=== PATIENT | male | born 1965 | race Caucasian/White ===

== ENCOUNTER 2018-01-19 22:30 | Inpatient (IN) ==
[2018-01-19 23:01] LABS: Basophils # 0.1 K/mm3 (0-0.2); Basophils % 0.5 % (0.1-2.0); Eosinophils # 0.4 K/mm3 (0.0-0.4); Hematocrit 47.5 % (42.0-52.0); Hemoglobin 15.1 g/dL (14.1-18.0); Lymphocytes # 2.8 K/mm3 (0.7-4.5); Lymphocytes % 31.5 K/mm3 (10-50); Mean Corpuscular HGB Conc 31.7 g/dL (31.8-35.4); Mean Platelet Volume 7.7 fl (7.4-10.4); Monocytes # 0.6 K/mm3 (0.1-1.0); Monocytes % 6.2 % (1.7-9.3); Neutrophils # 5.2 K/mm3 (1.8-7.8); Neutrophils % 57.7 % (37.0-80.0); Platelet Count 191 K/mm3 (142-424); Red Blood Count 5.58 M/mm3 (4.60-6.20); Red Cell Distribution Width 12.8 % (11.5-17.5); White Blood Count 8.9 K/mm3 (4.8-10.8)
[2018-01-19 23:12] LABS: Albumin Level 4.1 gm/dL (3.4-5.0); Albumin/Globulin Ratio 1.3 (1.1-1.8); Anion Gap 7.7 mEq/L (5-15); Bilirubin,Total 1.1 mg/dL (0.2-1.0); Calcium 8.8 mg/dL (8.5-10.1); Globulin 3.1 gm/dl (1.3-3.2); Potassium 3.7 mmoL/L (3.5-5.1); Total Protein,Serum 7.2 gm/dL (6.4-8.2)
--- NOTE | 2018-01-20 00:16 | Emergency Department Note ---
ED Disposition Clinical Impression: LBBB (left bundle branch block) Cholelithiasis Qualifiers: Cholelithiasis location: gallbladder Cholecystitis presence: without cholecystitis Biliary obstruction: without biliary obstruction Qualified Code(s) : K80.20 - Calculus of gallbladder without cholecystitis without obstruction Disposition: Admitted As Inpatient Condition on Discharge: Good - Critical Care Critical Care Time: No Attestation: On 01/19/18, the high probability of a clinically significant, sudden or life threatening deterioration of the following system(s) required my full and direct attention, intervention and personal management. The time I documented below is in addition to time spent performing reported procedures but includes the following listed in this critical care notation. Medical Decision Making - Medical Records Medical records reviewed: Yes: I reviewed the patient's medical records. - [place] Inquiry Pt receiving controlled substance: No Vital Signs: 01/19/18 22:54 01/19/18 23:01 Temperature 97.6 F Temperature Source Oral Pulse Rate [Right Radial] 70 78 Respiratory Rate 14 18 Blood Pressure [Right Arm] 148/99 144/100 Blood Pressure Mean [Right Arm] 115 114 Blood Pressure Source [Right Arm] Automatic Cuff Automatic Cuff Blood Pressure Position [Right Arm] Sitting Sitting 02 Sat by Pulse Oximetry 100 98 Oxygen Delivery Method Room Air Room Air - Lab Data Lab results reviewed: Yes: I reviewed the patient's lab results. Lab Results 01/19/18 22:50: WBC 8.9, RBC 5.58, Hgb 15.1, Hct 47.5, MCV 85.0, MCH 27.0, MCHC 31.7 L, RDW 12.8, Plt Count 191, MPV 7.7, Neut % (Auto) 57.7, Lymph % (Auto) 31.5, [place] % (Auto) 6.2, Eos % (Auto) 4.0, Baso % (Auto) 0.5, Neut # (Auto) 5.2 , Lymph # (Auto) 2.8, [place] # (Auto) 0.6, Eos # (Auto) 0.4, Baso # (Auto) 0.1 01/19/18 22:50: Sodium 140, Potassium 3.7, Chloride 105, Carbon Dioxide 31, Anion Gap 7.7, BUN 23 H, Creatinine 1.09, Estimated Creat Clear 129, Estimated GFR 70, Est GFR ( Amer) 85, Glucose 119 H, Calcium 8.8, Total Bilirubin 1.1 H, AST 221 H, ALT 184 H, Alkaline Phosphatase 148 H, Total Protein 7.2, Albumin 4.1, Globulin 3.1, Albumin/Globulin Ratio 1.3 01/19/18 22:50: Lipase 119 Result diagrams: 01/19/18 22:50 01/19/18 22:50 Orders (Tests/Meds): ED MEDICATIONS Generic Name Dose Route Start Last Admin Trade Name Freq PRN Reason Stop Dose Admin Ampicillin Sodium/Sulbactam 100 mls @ 200 mls/hr 01/20/18 00:45 01/20/18 01: 22 Sodium 3 gm/ Sodium Chloride IV 02/03/18 00:44 200 mls/hr Q8H CRESCENCIO Administration Protocol Discontinued Medications Generic Name Dose Route Start Last Admin Trade Name Freq PRN Reason Stop Dose Admin Morphine Sulfate 4 mg 01/20/18 00:00 01/20/18 00:20 Morphine 4mg/Ml Syringe IV 01/20/18 00:01 4 mg ONCE ONE Administration Ondansetron HCl 4 mg 01/19/18 23:59 01/20/18 00:20 Zofran 4mg/2ml Vial IV 01/20/18 00:00 4 mg ONCE ONE Administration ORDERS Category Date Time Status CT abdomen pelvis wo con Stat Cat Scan 01/19/18 23:04 Taken XR chest 2V Stat Exams 01/19/18 22:41 Taken 12-lead EKG Request [ECG Request by /Scooter] Stat Y 01/19/18 22:39 Ordered - Radiology Data #1 Image(s): Chest Image Reviewed: Yes I reviewed the patient's radiology image Preliminary Findings: Normal/NAD - CT Data CT Scan: Abdomen, Pelvis Time Received: 01:[address] Reviewed: Yes: I have viewed the radiologist's interpretation Preliminary Findings: Abnormal (cholelithiasis) - Physician Consults Physician Consulted: magnolia Reason -: Admission Additional Consult: laurel Reason -: Pt condition Nausea/Vomiting/Diarrhea HPI - General Chief complaint: Abdominal Pain Stated complaint: Upper abd pain Time Seen by Provider: 01/20/18 00:13 Mode of Arrival: Ambulatory Source of Information: Patient, Spouse, Medical Record Limitations: No Limitations Description of Symptoms (Recalled from ER Triage Doc. by RN): pt has epigastric pain for last couple days after eating, tonight had beens and was not relieved by apple cider vinager - History of Present Illness HPI Narrative: has had upper abd pain this week and tonight inc pain with nausea - pt w/o fever or diarrhea MD complaint: nausea, vomiting, abdominal pain Onset (ago): day(s) Associated Abdominal Pain: Yes Location of pain: RUQ Severity: moderate Consistency: colicky Exacerbating factors: eating Associated symptoms: nausea/vomiting - Related Data Home Medications Medication Instructions Recorded Confirmed Cetirizine HCl 10 mg PO DAILY 01/19/18 01/19/18 Glucosamine/MSM/Chondroitin A 1 each PO DAILY 01/19/18 01/19/18 [Glucosamine Chondroit MSM Tab] Lisinopril/Hydrochlorothiazide 1 tab PO DAILY 01/19/18 01/19/18 [Lisinopril-Hctz 10-12.5 mg Tab] Rosuvastatin Calcium [Crestor] 10 mg PO BID 01/19/18 01/19/18 Allergies Allergy/AdvReac Type Severity Reaction Status Date / Time No Known Allergies Allergy Unverified 07/08/17 15:29 [facility] History I have reviewed the patient's past medical history: Yes Medical History: Denies:: Cancer, Diabetes Mellitus Type 1, Diabetes Mellitus Type 2, MRSA Amputation: No Fractures: No - Social History Smoking Status: Former smoker Alcohol Intake: current Alcohol Intake Frequency:: a few times a month - Psychiatric History Expresses thoughts of harming self/others: None Suicide Plan Description: No Plan ROS Obtained: Yes All systems reviewed & no additional complaints - Constitutional Constitutional: Denies fever(s) - Eyes Eyes: Denies change in vision - ENT Ears, Nose, Mouth, and Throat: Denies sore throat - Cardiovascular Cardiovascular: Denies chest pain - Respiratory Respiratory: No cough - Gastrointestinal Gastrointestingal: Reports: abdominal pain, nausea, vomiting. Denies: diarrhea - Genitourinary Male Genitourinary: Denies hematuria - Musculoskeletal Musculoskeletal: Denies joint pain, Denies joint swelling - Integumentary/Breasts Skin/Breast: Denies rash - Neurologic Neurologic: Denies headache(s), Denies seizure-like activity Physical Exam - General General appearance: alert - Head Head exam: normocephalic - Eye Eye exam: Present: PERRL, EOMI. Absent: scleral icterus - ENT ENT exam: Present: mucous membranes moist - Neck Neck exam: Present: trachea midline - Respiratory Respiratory exam: Absent: respiratory distress - Cardiovascular Cardiovascular exam: Present: regular rate, systolic murmur - Abdominal Exam Abdominal exam: Present: soft, tenderness Abdominal tenderness: Present: RUQ, epigastrium, moderate - Extremities Exam Extremities exam: Present: full ROM - Back Exam Back exam: Absent: CVA tenderness (R) - Neurological Exam Neurological exam: Present: alert, oriented X3, CN II-XII intact - Psychiatric Psychiatric exam: Present: normal affect - Skin Skin exam: Absent: rash
[2018-01-20 07:03] LABS: Basophils % 0.5 % (0.1-2.0); Eosinophils # 0.3 K/mm3 (0.0-0.4); Eosinophils % 4.4 % (0.1-12.0); Hematocrit 45.6 % (42.0-52.0); Hemoglobin 14.2 g/dL (14.1-18.0); Lymphocytes % 27.8 K/mm3 (10-50); Mean Corpuscular HGB Conc 31.2 g/dL (31.8-35.4); Mean Corpuscular Hemoglobin 26.5 pg (27.0-31.2); Mean Corpuscular Volume 85.1 fl (80-94); Mean Platelet Volume 8.1 fl (7.4-10.4); Monocytes # 0.5 K/mm3 (0.1-1.0); Monocytes % 6.3 % (1.7-9.3); Neutrophils # 4.5 K/mm3 (1.8-7.8); Platelet Count 180 K/mm3 (142-424); Red Blood Count 5.35 M/mm3 (4.60-6.20); Red Cell Distribution Width 12.8 % (11.5-17.5); White Blood Count 7.3 K/mm3 (4.8-10.8)
[2018-01-20 07:19] LABS: Albumin Level 3.6 gm/dL (3.4-5.0); Albumin/Globulin Ratio 1.2 (1.1-1.8); Anion Gap 11.7 mEq/L (5-15); Bilirubin,Total 1.8 mg/dL (0.2-1.0); Calcium 8.2 mg/dL (8.5-10.1); Globulin 2.9 gm/dl (1.3-3.2); Potassium 3.7 mmoL/L (3.5-5.1); Total Protein,Serum 6.5 gm/dL (6.4-8.2)
--- NOTE | 2018-01-20 07:38 | History & Physical Report ---
*Admission Date: 01/20/18 *Chief complaint: Abdominal pain *History of present illness: 52-year-old male with history of atrial fibrillation and hypercholesterolemia presented to the emergency department after onset of abdominal pain after eating beans for supper. Patient had been experiencing episodes of epigastric and right upper quadrant abdominal pain to varying degrees over the last several weeks. He actually asked me about the symptoms at [facility] and was advised to follow-up. His pain became quite severe yesterday evening. In the emergency department workup was begun which revealed elevated transaminases and very mild elevation in total bilirubin. CT scan showed cholelithiasis and was also suspicious for a stone at the ampulla of Vater. Surgery was contacted and this admission was recommended. Patient was admitted on IV fluids and IV antibiotics with repeat labs scheduled for this morning. [facility] History I have reviewed the patient's past medical history: Yes Medical History: Reports:: Hyperlipidemia, Hypertension Denies:: Cancer, Diabetes Mellitus Type 1, Diabetes Mellitus Type 2, MRSA Amputation: No Fractures: No - *Social History Educational Level: Attended College Smoking Status: Former smoker Tobacco Type: smokeless tobacco Alcohol Intake: current Alcohol Intake Frequency:: a few times a month Occupational Status: employed Housing: house Household Members: spouse - Psychiatric History Expresses thoughts of harming self/others: None Suicide Plan Description: No Plan *Family Hx:: Cancer, Diabetes, Hyperlipidemia Review of Systems - Review of Systems Review of systems:: pertinent systems reviewed and negative unless documented below - Constitutional Denies chills, Denies fever(s) - *Cardiovascular Denies chest pain, Denies chest pain at rest, Denies shortness of breath - *Respiratory Denies cough, Denies shortness of breath - *Gastrointestinal Reports abdominal pain, Reports bloating, Reports heartburn, Reports feeling full early, Denies change in bowel habits - *Neurologic Denies headache(s), Denies seizure-like activity Meds Home Medications Medication Instructions Recorded Confirmed Type Cetirizine HCl 10 mg PO DAILY 01/19/18 01/19/18 History Glucosamine/MSM/Chondroitin A 1 each PO DAILY 01/19/18 01/19/18 History [Glucosamine Chondroit MSM Tab] Lisinopril/Hydrochlorothiazide 1 tab PO DAILY 01/19/18 01/19/18 History [Lisinopril-Hctz 10-12.5 mg Tab] Rosuvastatin Calcium [Crestor] 10 mg PO BID 01/19/18 01/19/18 History Allergies Allergy/AdvReac Type Severity Reaction Status Date / Time No Known Allergies Allergy Unverified 07/08/17 15:29 Exam Vital signs and Labs for Last 24 Hours: Temp Pulse Resp BP Pulse Ox 97.9 F 73 16 138/75 97 01/20/18 02:10 01/20/18 02:10 01/20/18 02:10 01/20/18 02:10 01/20/18 02:10 Laboratory Results - last 24 hr 01/19/18 22:50: WBC 8.9, RBC 5.58, Hgb 15.1, Hct 47.5, MCV 85.0, MCH 27.0, MCHC 31.7 L, RDW 12.8, Plt Count 191, MPV 7.7, Neut % (Auto) 57.7, Lymph % (Auto) 31.5, [place] % (Auto) 6.2, Eos % (Auto) 4.0, Baso % (Auto) 0.5, Neut # (Auto) 5.2 , Lymph # (Auto) 2.8, [place] # (Auto) 0.6, Eos # (Auto) 0.4, Baso # (Auto) 0.1 01/19/18 22:50: Sodium 140, Potassium 3.7, Chloride 105, Carbon Dioxide 31, Anion Gap 7.7, BUN 23 H, Creatinine 1.09, Estimated Creat Clear 129, Estimated GFR 70, Est GFR ( Amer) 85, Glucose 119 H, Calcium 8.8, Total Bilirubin 1.1 H, AST 221 H, ALT 184 H, Alkaline Phosphatase 148 H, Total Protein 7.2, Albumin 4.1, Globulin 3.1, Albumin/Globulin Ratio 1.3 01/19/18 22:50: Lipase 119 01/20/18 06:46: WBC 7.3, RBC 5.35, Hgb 14.2, Hct 45.6, MCV 85.1, MCH 26.5 L, MCHC 31.2 L, RDW 12.8, Plt Count 180, MPV 8.1, Neut % (Auto) 61.0, Lymph % (Auto ) 27.8, [place] % (Auto) 6.3, Eos % (Auto) 4.4, Baso % (Auto) 0.5, Neut # (Auto) 4.5, Lymph # (Auto) 2.0, [place] # (Auto) 0.5, Eos # (Auto) 0.3, Baso # (Auto) 0.0 01/20/18 06:46: Sodium 140, Potassium 3.7, Chloride 105, Carbon Dioxide 27, Anion Gap 11.7, BUN 21 H, Creatinine 0.94, Estimated Creat Clear 153, Estimated GFR 84, Est GFR ( Amer) 101, Glucose 106, Calcium 8.2 L, Total Bilirubin 1.8 H, AST 321 H* D, ALT 294 H D, Alkaline Phosphatase 162 H, Total Protein 6.5 , Albumin 3.6 D, Globulin 2.9, Albumin/Globulin Ratio 1.2, Lipase 102 I & O for Last 24 hours: Intake & Output 01/17/18 01/18/18 01/19/18 01/20/18 11:59 11:59 11:59 11:59 Weight 265 lb Narrative: He is sitting up in the chair and appears comfortable. He is alert and oriented 3. Lungs are clear to auscultation. Heart has a regular rate and rhythm. Abdomen is soft and nontender. Bowel sounds are present. Extremities are without edema. Neurologic exam is negative for deficit. H&P: Result - Labs Labs: Short CBC 01/19/18 01/20/18 Range/Units 22:50 06:46 WBC 8.9 7.3 (4.8-10.8) K/mm3 Hgb 15.1 14.2 (14.1-18.0) g/dL Hct 47.5 45.6 (42.0-52.0) % Plt Count 191 180 (142-424) K/mm3 [facility] 01/19/18 01/20/18 22:50 06:46 Sodium 140 140 Potassium 3.7 3.7 Chloride 105 105 Carbon Dioxide 31 27 BUN 23 H 21 H Creatinine 1.09 0.94 Glucose 119 H 106 Calcium 8.8 8.2 L Liver Function 01/19/18 01/20/18 Range/Units 22:50 06:46 Total Bilirubin 1.1 H 1.8 H (0.2-1.0) mg/dL AST 221 H 321 H* D (15-37) U/L ALT 184 H 294 H D (12-78) U/L Alkaline Phosphatase 148 H 162 H (46-116) U/L Albumin 4.1 3.6 D (3.4-5.0) gm/dL Assessment and Plan (1) Choledocholithiasis with obstruction Current visit: Yes Status: Acute Category: Medical Code(s): K80.51 - Calculus of bile duct without cholangitis or cholecystitis with obstruction (2) Cholelithiasis Current visit: Yes Status: Acute Qualifiers: Cholelithiasis location: gallbladder Cholecystitis presence: without cholecystitis Biliary obstruction: without biliary obstruction Qualified Code(s): K80.20 - Calculus of gallbladder without cholecystitis without obstruction Category: Medical Code(s): K80.20 - Calculus of gallbladder without cholecystitis without obstruction - Assessment and plan all Dx Assessment and Plan for all problems:: 1. Right upper quadrant ultrasound today to assess for any common bile duct dilatation as well as possible stone with in the bile duct. Elevated transaminases and mild elevation of bilirubin would suggest that there has been at least some temporary obstruction. Dr. Kuo has been consulted. Further decision making will be made after ultrasound was performed
--- NOTE | 2018-01-20 07:52 | Pharmacy Consult Notes ---
[facility] Pharm[facility] VTE Monitoring - Patient Demographics Admission date: 01/20/18 Report Date: 01/20/18 Time: 07:51 Allergies/Adverse Reactions: Patient Allergies No Known Allergies Allergy (Unverified 07/08/17 15:29) Height: 1.91 m Weight: 120.202 kg Patient Problems: Current Active Problems Cholelithiasis (Acute) LBBB (left bundle branch block) (Acute) Choledocholithiasis with obstruction (Acute) - VTE Risk Labs: VTE Related Lab Results Hgb 14.2 g/dL (14.1-18.0) 01/20/18 06:46 Hct 45.6 % (42.0-52.0) 01/20/18 06:46 Plt Count 180 K/mm3 (142-424) 01/20/18 06:46 BUN 21 mg/dL (7-18) H 01/20/18 06:46 Creatinine 0.94 mg/dL (0.70-1.30) 01/20/18 06:46 Estimated Creat Clear 153 mL/min (0-300) 01/20/18 06:46 Was VTE Risk Assessment Performed: Yes VTE Score: 1 VTE Risk Level: Very Low Risk Clinical Trial Participant: No - Prophylaxis VTE Prophylaxis Ordered?: Yes Types of VTE Prophylaxis: TEDS Knee High
--- NOTE | 2018-01-20 09:37 | Consult Report ---
*Admission Date: 01/20/18 *Chief complaint: Abdominal pain *History of present illness: 52-year-old male with history of atrial fibrillation and hypercholesterolemia presented to the emergency department after onset of abdominal pain after eating beans for supper. Patient had been experiencing episodes of epigastric and right upper quadrant abdominal pain to varying degrees over the last several weeks. He actually asked me about the symptoms at [facility] and was advised to follow-up. His pain became quite severe yesterday evening. In the emergency department workup was begun which revealed elevated transaminases and very mild elevation in total bilirubin. CT scan showed cholelithiasis and was also suspicious for a stone at the ampulla of Vater. Surgery was contacted and this admission was recommended. Patient was admitted on IV fluids and IV antibiotics with repeat labs scheduled for this morning. Review of Systems - *Neurologic Denies headache(s), Denies seizure-like activity [facility] History Medical History: Reports:: Hyperlipidemia, Hypertension Denies:: Cancer, Diabetes Mellitus Type 1, Diabetes Mellitus Type 2, MRSA Amputation: No Fractures: No - *Social History Educational Level: Attended College Smoking Status: Former smoker Tobacco Type: smokeless tobacco Alcohol Intake: current Alcohol Intake Frequency:: a few times a month Occupational Status: employed Housing: house Household Members: spouse - Psychiatric History Expresses thoughts of harming self/others: None Suicide Plan Description: No Plan *Family Hx:: Cancer, Diabetes, Hyperlipidemia Meds Home Medications Medication Instructions Recorded Confirmed Type Cetirizine HCl 10 mg PO DAILY 01/19/18 01/19/18 History Glucosamine/MSM/Chondroitin A 1 each PO DAILY 01/19/18 01/19/18 History [Glucosamine Chondroit MSM Tab] Lisinopril/Hydrochlorothiazide 1 tab PO DAILY 01/19/18 01/19/18 History [Lisinopril-Hctz 10-12.5 mg Tab] Rosuvastatin Calcium [Crestor] 10 mg PO HS 01/19/18 01/20/18 History Allergies Allergy/AdvReac Type Severity Reaction Status Date / Time No Known Allergies Allergy Unverified 07/08/17 15:29 Exam Vital signs and Labs for Last 24 Hours: Temp Pulse Resp BP Pulse Ox 97.5 F L 72 18 136/97 99 01/20/18 07:42 01/20/18 07:42 01/20/18 07:42 01/20/18 07:42 01/20/18 07:42 Laboratory Results - last 24 hr 01/19/18 22:50: WBC 8.9, RBC 5.58, Hgb 15.1, Hct 47.5, MCV 85.0, MCH 27.0, MCHC 31.7 L, RDW 12.8, Plt Count 191, MPV 7.7, Neut % (Auto) 57.7, Lymph % (Auto) 31.5, [place] % (Auto) 6.2, Eos % (Auto) 4.0, Baso % (Auto) 0.5, Neut # (Auto) 5.2 , Lymph # (Auto) 2.8, [place] # (Auto) 0.6, Eos # (Auto) 0.4, Baso # (Auto) 0.1 01/19/18 22:50: Sodium 140, Potassium 3.7, Chloride 105, Carbon Dioxide 31, Anion Gap 7.7, BUN 23 H, Creatinine 1.09, Estimated Creat Clear 129, Estimated GFR 70, Est GFR ( Amer) 85, Glucose 119 H, Calcium 8.8, Total Bilirubin 1.1 H, AST 221 H, ALT 184 H, Alkaline Phosphatase 148 H, Total Protein 7.2, Albumin 4.1, Globulin 3.1, Albumin/Globulin Ratio 1.3 01/19/18 22:50: Lipase 119 01/20/18 06:46: WBC 7.3, RBC 5.35, Hgb 14.2, Hct 45.6, MCV 85.1, MCH 26.5 L, MCHC 31.2 L, RDW 12.8, Plt Count 180, MPV 8.1, Neut % (Auto) 61.0, Lymph % (Auto ) 27.8, [place] % (Auto) 6.3, Eos % (Auto) 4.4, Baso % (Auto) 0.5, Neut # (Auto) 4.5, Lymph # (Auto) 2.0, [place] # (Auto) 0.5, Eos # (Auto) 0.3, Baso # (Auto) 0.0 01/20/18 06:46: Sodium 140, Potassium 3.7, Chloride 105, Carbon Dioxide 27, Anion Gap 11.7, BUN 21 H, Creatinine 0.94, Estimated Creat Clear 153, Estimated GFR 84, Est GFR ( Amer) 101, Glucose 106, Calcium 8.2 L, Total Bilirubin 1.8 H, AST 321 H* D, ALT 294 H D, Alkaline Phosphatase 162 H, Total Protein 6.5 , Albumin 3.6 D, Globulin 2.9, Albumin/Globulin Ratio 1.2, Lipase 102 I & O for Last 24 hours: Intake & Output 01/17/18 01/18/18 01/19/18 01/20/18 11:59 11:59 11:59 11:59 Intake Total 0 / 0 Balance 0 / 0 Weight 265 lb - Constitutional no acute distress - *Routine Respiratory Exam Present: CTA bilaterally - *Routine Cardiovascular Exam Present: RRR - *Routine Abdominal Exam Present: soft. Absent: tenderness Results - Labs 01/20/18 06:46 01/20/18 06:46 Laboratory Results - last 24 hr 01/19/18 22:50: WBC 8.9, RBC 5.58, Hgb 15.1, Hct 47.5, MCV 85.0, MCH 27.0, MCHC 31.7 L, RDW 12.8, Plt Count 191, MPV 7.7, Neut % (Auto) 57.7, Lymph % (Auto) 31.5, [place] % (Auto) 6.2, Eos % (Auto) 4.0, Baso % (Auto) 0.5, Neut # (Auto) 5.2 , Lymph # (Auto) 2.8, [place] # (Auto) 0.6, Eos # (Auto) 0.4, Baso # (Auto) 0.1 01/19/18 22:50: Sodium 140, Potassium 3.7, Chloride 105, Carbon Dioxide 31, Anion Gap 7.7, BUN 23 H, Creatinine 1.09, Estimated Creat Clear 129, Estimated GFR 70, Est GFR ( Amer) 85, Glucose 119 H, Calcium 8.8, Total Bilirubin 1.1 H, AST 221 H, ALT 184 H, Alkaline Phosphatase 148 H, Total Protein 7.2, Albumin 4.1, Globulin 3.1, Albumin/Globulin Ratio 1.3 01/19/18 22:50: Lipase 119 01/20/18 06:46: WBC 7.3, RBC 5.35, Hgb 14.2, Hct 45.6, MCV 85.1, MCH 26.5 L, MCHC 31.2 L, RDW 12.8, Plt Count 180, MPV 8.1, Neut % (Auto) 61.0, Lymph % (Auto ) 27.8, [place] % (Auto) 6.3, Eos % (Auto) 4.4, Baso % (Auto) 0.5, Neut # (Auto) 4.5, Lymph # (Auto) 2.0, [place] # (Auto) 0.5, Eos # (Auto) 0.3, Baso # (Auto) 0.0 01/20/18 06:46: Sodium 140, Potassium 3.7, Chloride 105, Carbon Dioxide 27, Anion Gap 11.7, BUN 21 H, Creatinine 0.94, Estimated Creat Clear 153, Estimated GFR 84, Est GFR ( Amer) 101, Glucose 106, Calcium 8.2 L, Total Bilirubin 1.8 H, AST 321 H* D, ALT 294 H D, Alkaline Phosphatase 162 H, Total Protein 6.5 , Albumin 3.6 D, Globulin 2.9, Albumin/Globulin Ratio 1.2, Lipase 102 Assessment and Plan (1) Choledocholithiasis with obstruction Current visit: Yes Status: Acute Category: Medical Code(s): K80.51 - Calculus of bile duct without cholangitis or cholecystitis with obstruction (2) Cholelithiasis Current visit: Yes Status: Acute Qualifiers: Cholelithiasis location: gallbladder Cholecystitis presence: without cholecystitis Biliary obstruction: without biliary obstruction Qualified Code(s): K80.20 - Calculus of gallbladder without cholecystitis without obstruction Category: Medical Code(s): K80.20 - Calculus of gallbladder without cholecystitis without obstruction - Assessment and plan all Dx Assessment and Plan for all problems:: Patient has had acute episodes of abdominal pain consistent with biliary colic. CT imaging yesterday evening was suggestive of gallstones and possible stone near the ampulla. Repeat liver function tests today revealed further increase. However, at this point the patient is completely asymptomatic and feels well. Plan to check the gallbladder ultrasound as the next step. He likely has had choledocholithiasis which may have now resolved or is transient with occasional obstruction. Pending the findings of the ultrasound he may need either MRCP or ERCP as next step in management.
[2018-01-21 05:48] LABS: Albumin Level 3.7 gm/dL (3.4-5.0); Albumin/Globulin Ratio 1.2 (1.1-1.8); Anion Gap 10.7 mEq/L (5-15); Bilirubin,Total 0.7 mg/dL (0.2-1.0); Calcium 8.7 mg/dL (8.5-10.1); Potassium 3.7 mmoL/L (3.5-5.1); Total Protein,Serum 6.7 gm/dL (6.4-8.2)
--- NOTE | 2018-01-21 06:37 | Progress Note ---
Subjective Patient reports: feels better Narrative: Patient feels quite well. Essentially asymptomatic. Tolerated bland diet. Exam Vital signs and Labs for Last 24 Hours: Temp Pulse Resp BP Pulse Ox 97.9 F 62 16 122/80 97 01/21/18 04:00 01/21/18 04:00 01/21/18 04:00 01/21/18 04:00 01/21/18 04:00 Laboratory Results - last 24 hr 01/20/18 06:46: WBC 7.3, RBC 5.35, Hgb 14.2, Hct 45.6, MCV 85.1, MCH 26.5 L, MCHC 31.2 L, RDW 12.8, Plt Count 180, MPV 8.1, Neut % (Auto) 61.0, Lymph % (Auto ) 27.8, [place] % (Auto) 6.3, Eos % (Auto) 4.4, Baso % (Auto) 0.5, Neut # (Auto) 4.5, Lymph # (Auto) 2.0, [place] # (Auto) 0.5, Eos # (Auto) 0.3, Baso # (Auto) 0.0 01/20/18 06:46: Sodium 140, Potassium 3.7, Chloride 105, Carbon Dioxide 27, Anion Gap 11.7, BUN 21 H, Creatinine 0.94, Estimated Creat Clear 153, Estimated GFR 84, Est GFR ( Amer) 101, Glucose 106, Calcium 8.2 L, Total Bilirubin 1.8 H, AST 321 H* D, ALT 294 H D, Alkaline Phosphatase 162 H, Total Protein 6.5 , Albumin 3.6 D, Globulin 2.9, Albumin/Globulin Ratio 1.2, Lipase 102 01/21/18 05:00: Sodium 140, Potassium 3.7, Chloride 106, Carbon Dioxide 27, Anion Gap 10.7, BUN 20 H, Creatinine 0.88, Estimated Creat Clear 163, Estimated GFR 90, Est GFR ( Amer) 109, Glucose 115 H, Calcium 8.7, Total Bilirubin 0.7, AST 107 H D, ALT 203 H D, Alkaline Phosphatase 160 H, Total Protein 6.7, Albumin 3.7, Globulin 3.0, Albumin/Globulin Ratio 1.2 I & O for Last 24 hours: Intake & Output 01/18/18 01/19/18 01/20/18 01/21/18 11:59 11:59 11:59 11:59 Intake Total 0 / 0 1223 / 1223 Output Total 800 / 800 Balance 0 / 0 423 / 423 Weight 265 lb - Constitutional no acute distress - *Routine Abdominal Exam Present: soft Progress Note: A&P (1) Choledocholithiasis with obstruction Status: Acute Current Visit: Yes (2) Cholelithiasis Status: Acute Current Visit: Yes Assessment and Plan for All Diagnoses:: Liver function tests revealed significant improvement. Plan for discharge home with outpatient ERCP on Friday by Dr. Ureña. Follow-up after that for cholecystectomy.
--- NOTE | 2018-01-21 07:23 | Discharge Summary ---
General - General Admission date:: 01/20/18 HPI HPI: 52-year-old male with history of atrial fibrillation and hypercholesterolemia presented to the emergency department after onset of abdominal pain after eating beans for supper. Patient had been experiencing episodes of epigastric and right upper quadrant abdominal pain to varying degrees over the last several weeks. He actually asked me about the symptoms at latter day and was advised to follow-up. His pain became quite severe yesterday evening. In the emergency department workup was begun which revealed elevated transaminases and very mild elevation in total bilirubin. CT scan showed cholelithiasis and was also suspicious for a stone at the ampulla of Vater. Surgery was contacted and this admission was recommended. Patient was admitted on IV fluids and IV antibiotics with repeat labs scheduled for this morning. Hospital Course Hospital Course: Patient was admitted and placed on IV fluids. The morning following admission patient underwent gallbladder ultrasound which showed gallstones in the gallbladder, normal size common bile duct and no definite stone within the common bile duct. Dr. Kuo spoke with Dr. Ureña and it was agreed upon that ERCP would be the next best choice as there was still concern about possible stones at the ampulla of Vater. Patient was scheduled for outpatient ERCP on January 26. LFTs were followed and after initial increase on the morning following admission after 24 hours of fluids the LFTs decreased. Patient's diet was advanced to a bland diet which he tolerated. Patient was discharged home and will follow up with for ERCP with Dr. Ureña on January 26. He will follow-up with Dr. Kuo approximately 1 week after his ERCP. Patient will follow-up with me on January 30 at 330. Objective Vital signs: Temp Pulse Resp BP Pulse Ox 97.9 F 62 16 122/80 97 01/21/18 04:00 01/21/18 04:00 01/21/18 04:00 01/21/18 04:00 01/21/18 04:00 Results Labs on day of discharge: Labs from last 24 hours 01/21/18 01/20/18 05:00 06:46 Sodium 140 140 Potassium 3.7 3.7 Chloride 106 105 Carbon Dioxide 27 27 Anion Gap 10.7 11.7 BUN 20 H 21 H Creatinine 0.88 0.94 Estimated Creat Clear 163 153 Estimated GFR 90 84 Est GFR ( Amer) 109 101 Glucose 115 H 106 Calcium 8.7 8.2 L Total Bilirubin 0.7 1.8 H AST 107 H D 321 H* D ALT 203 H D 294 H D Alkaline Phosphatase 160 H 162 H Total Protein 6.7 6.5 Albumin 3.7 3.6 D Globulin 3.0 2.9 Albumin/Globulin Ratio 1.2 1.2 Lipase 102 DS: Diagnosis - Discharge Diagnosis (1) Choledocholithiasis with obstruction Status: Acute (2) Cholelithiasis Status: Acute Discharge Plan - Patient Discharge Instructions ACTIVITY: Continue current activity DIET: continue same diet Patient Instructions: Gallstones - Follow up Plan Follow up with: Jaquan Ureña MD [Staff Physician] - 01/26/18 (ERCP) Jeff Kuo MD [Staff Physician] - 2 weeks Saran Baez MD [Primary Care Provider] - 01/30/18 3:30 pm Disposition: Home, Self-Custodial Medications: Home Medications Medication Instructions Recorded Confirmed Type Cetirizine HCl 10 mg PO DAILY 01/19/18 01/19/18 History Glucosamine/MSM/Chondroitin A 1 each PO DAILY 01/19/18 01/19/18 History [Glucosamine Chondroit MSM Tab] Lisinopril/Hydrochlorothiazide 1 tab PO DAILY 01/19/18 01/19/18 History [Lisinopril-Hctz 10-12.5 mg Tab] Rosuvastatin Calcium [Crestor] 10 mg PO HS 01/19/18 01/20/18 History Prescriptions/Medication Reconciliation: Continue Rosuvastatin Calcium [Crestor] 10 mg PO HS Glucosamine/MSM/Chondroitin A [Glucosamine Chondroit MSM Tab] 1 each PO DAILY Cetirizine HCl 10 mg PO DAILY Lisinopril/Hydrochlorothiazide [Lisinopril-Hctz 10-12.5 mg Tab] 1 tab PO DAILY
[2018-01-21 07:25] VITALS: BP 128/85
== END 2018-01-21 08:03 | disposition home or self-care (01) ==
LOC: ER 22:30 → 2ND 01-20 00:50
PROVIDERS: ADMIT Family Medicine; ATTEND Family Medicine

== ENCOUNTER 2020-08-11 19:44 | Emergency (ER) | payer OTHER, SELFPAY ==
[2020-08-11 20:00] VITALS: BP 133/92; PULSE 94; RESP 19; TEMP 36.6; O2SAT 98; BMI 32.5
--- NOTE | 2020-08-11 20:17 | HMH.EDUTC ---
[facility] [place] Disposition Clinical Impression: Exposure to COVID-19 virus Disposition: Home, Self-Care Condition on Discharge: Good Instructions: Preventing the Spread of Coronavirus Discharge Instructions Additional Instructions: You have been tested for COVID19. Please isolate yourself as if you are positive until test results received. Referrals: Saran Baez MD [Primary Care Provider] - Time of Disposition: 20:25 Medical Decision Making - [place] Inquiry Pt receiving controlled substance: No Vital Signs: 08/11/20 20:00 Temperature 97.8 F Temperature Source Oral Pulse Rate [Right Brachial] 94 H Respiratory Rate 19 Blood Pressure [Right Arm] 133/92 H Blood Pressure Mean [Right Arm] 105 Blood Pressure Source [Right Arm] Automatic Cuff Blood Pressure Position [Right Arm] Sitting 02 Sat by Pulse Oximetry 98 Oxygen Delivery Method Room Air Orders (Tests/Meds): ORDERS Category Date Time Status Covid-19 Nasal PCR ([facility]) Routine Lab 08/11/20 20:00 Received [facility] [place] HPI - General Stated complaint: Wants Covid Test,tested + Time Seen by Provider: 08/11/20 20:22 Mode of Arrival: Ambulatory Source of Information: Patient Limitations: No Limitations Description of Symptoms (Recalled from Triage Doc. by RN): PATIENT STATES HE TESTED POSITIVE ON BLOOD WORK TODAY. NEEDS A PCR HEENT Symptoms (Recalled from RN notes): No Resp Symptoms (Recalled from RN notes): No Skin Symptoms (Recalled from RN notes): No MS Symptoms (Recalled from RN notes): No Functional Status (Recalled from RN notes): WNL - History of Present Illness Provider Complaint: Headache, chest congestion, fatigue, sinus pressure X 2 days. No fever. Exposure to COVID at work and had positive antibody test. Onset (ago): day(s) (2) Relieving factors: none Exacerbating factors: none Associated symptoms: denies other symptoms Treatments prior to arrival: none - Related Data Home Medications Medication Instructions Recorded Confirmed Glucosamine/MSM/Chondroitin A 1 each PO DAILY 01/19/18 04/23/19 [Glucosamine Chondroit MSM Tab] Lisinopril/Hydrochlorothiazide 1 tab PO DAILY 01/19/18 04/23/19 [Lisinopril-Hctz 10-12.5 mg Tab*] Rosuvastatin Calcium [Crestor] 10 mg PO HS 01/19/18 04/23/19 Aspirin [Aspir 81] 81 mg PO DAILY 01/21/18 04/23/19 Potassium 99 mg PO DAILY 01/21/18 04/23/19 Psyllium Husk [Metamucil] 660 gm PO DAILY 01/21/18 04/23/19 Ubidecarenone/Vit E Acet [Co Q-10 1 each PO DAILY 01/21/18 04/23/19 100 mg Softgel] loratadine 10 mg tablet 10 mg PO DAILY 04/09/19 04/23/19 psyllium husk 0.52 gram capsule 0.52 g PO DAILY 04/09/19 04/23/19 venlafaxine 75 mg capsule,extended 75 mg PO DAILY 04/09/19 04/23/19 release 24 hr Previous Rx's Medication Instructions Recorded sulfamethoxazole 800 1 tab PO BID 10 Days #20 tab 04/09/19 mg-trimethoprim 160 mg tablet Allergies Allergy/AdvReac Type Severity Reaction Status Date / Time No Known Allergies Allergy Verified 04/23/19 14:33 - Worker's Comp Is this a Worker's Comp case?: No [facility] History - Hepatitis A Screen Drug use history?: No High risk sexual behaviors?: No History of sexually transmitted infection?: No Currently employed?: No Childcare worker?: No Do you have indoor plumbing?: Yes Do you have electricity?: Yes Attestation statement:: This patient has been screened for Hepatitis A risk factors. I have reviewed the patient's past medical history: Yes Medical History: Reports:: Atrial Fibrillation, Hyperlipidemia, Hypertension Denies:: Cancer, Diabetes Mellitus Type 1, Diabetes Mellitus Type 2, Internal Pacemaker, MRSA, Seizures Other Medical History: Denies: Blood Transfusion Reaction Laterality Cases: Bilateral: Tonsillectomy Other Surgeries: Yes: Cardiac Surgery, Cholecystectomy, Colonoscopy, Other. No: Pacemaker Amputation: No Fractures: No Comment: polyp removed from mouth, vasectomy, wisdom teeth - Social History Smoking Status: Former smoker
[2020-08-11 20:22] VITALS: BP 133/92; PULSE 94; RESP 19; TEMP 36.6; O2SAT 98
== END 2020-08-11 20:27 | disposition home or self-care (01) ==
PROVIDERS: Emergency Provider Physician Assistant; PCP Family Medicine
DX: Z20.822 Contact with and (suspected) exposure to COVID-19 (principal); R51.9 Headache, unspecified; I48.91 Unspecified atrial fibrillation; I10 Essential (primary) hypertension; E78.5 Hyperlipidemia, unspecified; Z87.891 Personal history of nicotine dependence; Z79.899 Other long term (current) drug therapy
CPT/HCPCS: 99202; G0463; U0003

== ENCOUNTER 2020-08-20 12:46 | Emergency (ER) | payer OTHER, SELFPAY ==
[2020-08-20 13:10] VITALS: BP 131/89; PULSE 60; RESP 14; TEMP 36.5; O2SAT 98; BMI 32.5
--- NOTE | 2020-08-20 13:46 | HMH.EDUTC ---
[facility] [place] Clinical Impression: Exposure to COVID-19 virus Disposition: Home, Self-Care Condition on Discharge: Good Instructions: Preventing the Spread of Coronavirus Discharge Instructions Additional Instructions: Drink plenty of fluids. Take tylenol for pain or fever. Return if you begin to have difficulty breathing. Follow up with your regular doctor. GO TO THE ER FOR ANY WORSENING SYMPTOMS Referrals: Saran Baez MD [Primary Care Provider] - Time of Disposition: 13:48 Medical Decision Making - Medical Records Medical records reviewed: No: I reviewed the patient's medical records. - [place] Inquiry Pt receiving controlled substance: No Vital Signs: 08/20/20 13:10 08/20/20 13:56 Temperature 97.7 F 97.7 F Temperature Source Oral Pulse Rate 60 Pulse Rate [Right Brachial] 60 Respiratory Rate 14 14 Blood Pressure 131/89 Blood Pressure [Right Arm] 131/89 Blood Pressure Mean [Right Arm] 103 Blood Pressure Source [Right Arm] Automatic Cuff Blood Pressure Position [Right Arm] Sitting 02 Sat by Pulse Oximetry 98 Oxygen Delivery Method Room Air [facility] [place] HPI - General Stated complaint: covid Test Time Seen by Provider: 08/20/20 13:46 Mode of Arrival: Ambulatory Source of Information: Patient Limitations: No Limitations Description of Symptoms (Recalled from Triage Doc. by RN): PATIENT REQUESTING COVID TEST. C/O FATIGUE AND COUGH HEENT Symptoms (Recalled from RN notes): No Resp Symptoms (Recalled from RN notes): No Skin Symptoms (Recalled from RN notes): No MS Symptoms (Recalled from RN notes): No Functional Status (Recalled from RN notes): WNL - History of Present Illness Provider Complaint: He states that for the past 2 days he has had fatigue and feeling bad. He was around someone with covid-19 at his work several days ago. - Related Data Home Medications Medication Instructions Recorded Confirmed Glucosamine/MSM/Chondroitin A 1 each PO DAILY 01/19/18 04/23/19 [Glucosamine Chondroit MSM Tab] Lisinopril/Hydrochlorothiazide 1 tab PO DAILY 01/19/18 04/23/19 [Lisinopril-Hctz 10-12.5 mg Tab*] Rosuvastatin Calcium [Crestor] 10 mg PO HS 01/19/18 04/23/19 Aspirin [Aspir 81] 81 mg PO DAILY 01/21/18 04/23/19 Potassium 99 mg PO DAILY 01/21/18 04/23/19 Psyllium Husk [Metamucil] 660 gm PO DAILY 01/21/18 04/23/19 Ubidecarenone/Vit E Acet [Co Q-10 1 each PO DAILY 01/21/18 04/23/19 100 mg Softgel] loratadine 10 mg tablet 10 mg PO DAILY 04/09/19 04/23/19 psyllium husk 0.52 gram capsule 0.52 g PO DAILY 04/09/19 04/23/19 venlafaxine 75 mg capsule,extended 75 mg PO DAILY 04/09/19 04/23/19 release 24 hr Previous Rx's Medication Instructions Recorded sulfamethoxazole 800 1 tab PO BID 10 Days #20 tab 04/09/19 mg-trimethoprim 160 mg tablet Allergies Allergy/AdvReac Type Severity Reaction Status Date / Time No Known Allergies Allergy Verified 04/23/19 14:33 - Worker's Comp Is this a Worker's Comp case?: No [facility] History - Hepatitis A Screen Drug use history?: No High risk sexual behaviors?: No History of sexually transmitted infection?: No Currently employed?: No Childcare worker?: No Do you have indoor plumbing?: Yes Do you have electricity?: Yes Attestation statement:: This patient has been screened for Hepatitis A risk factors. I have reviewed the patient's past medical history: Yes Medical History: Reports:: Atrial Fibrillation, Hyperlipidemia, Hypertension Denies:: Cancer, Diabetes Mellitus Type 1, Diabetes Mellitus Type 2, Internal Pacemaker, MRSA, Seizures Other Medical History: Denies: Blood Transfusion Reaction Laterality Cases: Bilateral: Myringotomy (Ear Tubes), Tonsillectomy Other Surgeries: Yes: Cardiac Surgery, Cholecystectomy, Colonoscopy, Other. No: Pacemaker Amputation: No Fractures: No Comment: polyp removed from mouth, vasectomy, wisdom teeth - Social History Smoking Status: Former smoker Tobacco Type: smokeless tobacco
[2020-08-20 13:56] VITALS: BP 131/89; PULSE 60; RESP 14; TEMP 36.5; O2SAT 98
== END 2020-08-20 13:58 | disposition home or self-care (01) ==
PROVIDERS: Emergency Provider Nurse Practitioner Family; PCP Family Medicine
DX: Z20.822 Contact with and (suspected) exposure to COVID-19 (principal); R53.1 Weakness; I10 Essential (primary) hypertension; E78.5 Hyperlipidemia, unspecified; I48.91 Unspecified atrial fibrillation; Z79.899 Other long term (current) drug therapy
CPT/HCPCS: 99202; G0463; U0003

== ENCOUNTER 2021-02-24 09:14 | Emergency (ER) | payer OTHER, SELFPAY ==
[2021-02-24 09:16] VITALS: BP 152/84; PULSE 77; RESP 18; TEMP 37.1; O2SAT 96; BMI 32.5
--- NOTE | 2021-02-24 09:45 | HMH.EDUTC ---
[facility] [place] Clinical Impression: Upper respiratory infection Qualifiers: URI type: unspecified viral URI Qualified Code(s): J06.9 - Acute upper respiratory infection, unspecified Disposition: Home, Self-Care Condition on Discharge: Good Instructions: Preventing the Spread of Coronavirus Discharge Instructions Additional Instructions: You have been tested for COVID19. Please isolate yourself as if you are positive until test results received. Prescriptions: Brompheniramine/Pseudoephed/Dm [Bromfed DM Cough Syrup 5mL] 5 ml PO Q4HP PRN 10 Days #180 ml PRN Reason: Cough Transmission Status: Pending to [id number] predniSONE [Prednisone 20mg Tab] 20 mg PO BID 5 Days #10 tab Transmission Status: Pending to [id number] Referrals: Saran Baez MD [Primary Care Provider] - Time of Disposition: 09:49 Medical Decision Making - [place] Inquiry Pt receiving controlled substance: No Orders (Tests/Meds): ORDERS Category Date Time Status Covid-19 Nasal PCR ([facility]) Routine Lab 02/24/21 09:39 Ordered [facility] [place] HPI - General Stated complaint: congestion, fever, cough Time Seen by Provider: 02/24/21 09:46 - History of Present Illness Provider Complaint: 2 day history of cough, body aches, fatigue, congestion. Had low grade fever. Blood pressure a little high. Denies ear pain, sore throat. Denies vomiting or diarrhea. 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 Onset (ago): day(s) (2) Location: chest Relieving factors: none Exacerbating factors: none Associated symptoms: cough, fever/chills Treatments prior to arrival: NSAID - Related Data Home Medications Medication Instructions Recorded Confirmed Glucosamine/MSM/Chondroitin A 1 each PO DAILY 01/19/18 12/11/20 [Glucosamine Chondroit MSM Tab] Lisinopril/Hydrochlorothiazide 1 tab PO DAILY 01/19/18 12/11/20 [Lisinopril-Hctz 10-12.5 mg Tab*] Rosuvastatin Calcium [Crestor] 10 mg PO HS 01/19/18 12/11/20 Aspirin [Aspir 81] 81 mg PO DAILY 01/21/18 12/11/20 Potassium 99 mg PO DAILY 01/21/18 12/11/20 loratadine 10 mg tablet 10 mg PO DAILY 04/09/19 12/11/20 venlafaxine 75 mg capsule,extended 75 mg PO DAILY 04/09/19 12/11/20 release 24 hr celecoxib 200 mg capsule 200 mg PO cap 12/11/20 12/11/20 Previous Rx's Medication Instructions Recorded Brompheniramine/Pseudoephed/Dm 5 ml PO Q4HP PRN 10 Days #180 ml 02/24/21 [Bromfed DM Cough Syrup 5mL] predniSONE [Prednisone 20mg 20 mg PO BID 5 Days #10 tab 02/24/21 Tab] Allergies Allergy/AdvReac Type Severity Reaction Status Date / Time No Known Allergies Allergy Verified 12/11/20 14:01 [facility] History - Hepatitis A Screen Attestation statement:: This patient has been screened for Hepatitis A risk factors. I have reviewed the patient's past medical history: Yes Medical History: Reports:: Atrial Fibrillation, Hyperlipidemia, Hypertension Denies:: Cancer, Diabetes Mellitus Type 1, Diabetes Mellitus Type 2, Internal Pacemaker, MRSA, Seizures Other Medical History: Denies: Blood Transfusion Reaction Laterality Cases: Bilateral: Myringotomy (Ear Tubes), Tonsillectomy Other Surgeries: Yes: Cardiac Surgery, Cholecystectomy, Colonoscopy, Other. No: Pacemaker Amputation: No Fractures: No Comment: polyp removed from mouth, vasectomy, wisdom teeth, Heart surgery 2015 ([place], [place]) - Social History Smoking Status: Former smoker Tobacco Type: smokeless tobacco Alcohol Intake: never Alcohol Intake Frequency:: a few times a month Occupational Status: other Housing: house Household Members: spouse Family Hx:: Cancer, Diabetes, Hyperlipidemia ROS Obtained: Yes All systems reviewed & no additional complaints - ENT Ears, Nose, Mouth, and Throat: Reports nasal congestion, Reports nasal discharge - Respiratory Respiratory: Reports chest congestion, Reports cough Physical Exam - General General appearance: alert, in no apparent
[2021-02-24 09:58] VITALS: BP 152/84; PULSE 77; RESP 20; TEMP 37.1; O2SAT 96
--- NOTE | 2021-02-24 16:02 | PC.NURSE ---
Pt aware of covid results, instructed to quarantine until further notice from health dept
--- NOTE | 2021-02-25 09:23 | PC.NURSE ---
Called to set up infusion for Friday02/26/21 at 0900. Pt states that he will be here at this time
== END 2021-02-24 10:00 | disposition home or self-care (01) ==
PROVIDERS: Emergency Provider Physician Assistant; PCP Family Medicine
DX: U07.1 COVID-19 (principal); I10 Essential (primary) hypertension; E78.5 Hyperlipidemia, unspecified; I48.0 Paroxysmal atrial fibrillation; Z79.899 Other long term (current) drug therapy
CPT/HCPCS: 99202; G0463; U0003

== ENCOUNTER 2021-02-26 08:53 | Outpatient (CLI) | payer OTHER, SELFPAY ==
[2021-02-26] VITALS (8 sets, daily range): BP systolic 120–138; BP diastolic 80–93; PULSE 63–80; RESP 18–20; TEMP 36.7–36.9; O2SAT 95–96; BMI 32.5
--- NOTE | 2021-02-26 10:20 | PC.NURSE ---
Infusion complete, pt denies any reactions. Pt provided breakfast tray.
== END 2021-02-26 11:21 | disposition home or self-care (01) ==
LOC: INF 08:55
PROVIDERS: Visit Provider Emergency Medicine
DX: U07.1 COVID-19 (principal)
CPT/HCPCS: 96365

== ENCOUNTER → 2022-04-08 16:24 | Outpatient (CLI) | payer OTHER, SELFPAY ==
--- NOTE | 2022-04-08 16:28 | XR_ITS ---
PROCEDURE INFORMATION: Exam: XR Right Knee Exam date and time: 04/08/2022 4:38 PM Age: 56 years old Clinical indication: Pain; Knee; Right; Additional info: Knee pain TECHNIQUE: Imaging protocol: Radiologic exam of the Right knee. Views: 4 or more views. COMPARISON: No relevant prior studies available. FINDINGS: Bones/joints: No acute fracture or malalignment. Moderate tricompartmental degenerative changes. Osteopenia. Small joint effusion. Patellar enthesopathy. Soft tissues: Normal. IMPRESSION: 1. No acute fracture or malalignment. 2. Moderate tricompartmental degenerative changes. 3. Small joint effusion.
== END ==
PROVIDERS: PCP Internal Medicine Adolescent Medicine; Visit Provider Orthopaedic Surgery
DX: M25.561 Pain in right knee (principal)
CPT/HCPCS: 73564

== ENCOUNTER 2023-03-21 18:06 | Emergency (ER) | payer OTHER, SELFPAY ==
[2023-03-21 18:20] VITALS: BP 126/91; PULSE 83; RESP 14; TEMP 37.3; O2SAT 94; BMI 32.8
--- NOTE | 2023-03-21 18:56 | EXP.UTC ---
Discharge Plan Disposition Patient Disposition: Home, Self-Care Condition: Good Prescriptions Prescriptions: No Action celecoxib 200 mg capsule 200 mg PO venlafaxine 75 mg capsule,extended release 24hr 75 mg PO DAILY loratadine 10 mg tablet 10 mg PO DAILY lisinopril-hydrochlorothiazide 1 EACH tablet 1 tab PO DAILY rosuvastatin 10 MG tablet 10 mg PO HS glucosamine [id number] 1 EACH tablet 1 each PO DAILY aspirin 81 MG tablet,delayed release (DR/EC) 81 mg PO DAILY potassium 99 MG tablet 99 mg PO DAILY prednisone 20 MG tablet 20 mg PO BID 5 Days Qty: 10 0RF [id number] 473 ML syrup 5 ml PO Q4HP PRN (Reason: Cough) 10 Days Qty: 180 0RF Referrals Follow up/Referrals: Cherelle Christianson MD [Primary Care Provider] - See instructions Activity Restrictions/Add. Instructions Additional Instructions/Restrictions: *Monitor Temp, Over the counter Motrin or Tylenol as directed/as needed Tylenol every 4 hours and Motrin every 6 hours (as long as your family doctor has told you that you can take it) for fever or pain. and straight to ER if unable to lower temp less than 101.0 after medication given *Warm salt water gargles may help to soothe the throat *Throat Lozenges? *Warm fluids like tea with honey may help to soothe the throat? *Sleep elevated *Humidifier/Vaporizer Follow up IMMEDIATELY for new or worsening symptoms or no Noticeable improvement over the next 48-72 hours. 911 for difficulty breathing or swallowing You were tested for today for COVID19 your test result should be back in the next 24-48 hours, you may check your results on the [facility] [employer] Health Portal they will be on there when they are complete Clinical Impressions Clinical Impression: Encounter for laboratory testing for COVID-19 virus Stand Alone Forms Stand Alone Forms: Work/School Release Instructions Patient Instructions: DI for COVID-19 (Suspected or Confirmed ), Preventing the Spread of Coronavirus Discharge Instructions Discharge ED Provider[place]ola Este[place] [facility] [place] General Stated complaint: cough,congestion, at home covid + Mode of Arrival: Ambulatory Source of Information: Patient Limitations: No Limitations Time Seen by Provider: 03/21/23 18:56 Description of Symptoms (Recalled from Triage Doc. by RN): PATIENT STATES HE TESTED POSITIVE FOR COVID AT HOME AND IS NEEDING A TEST FOR WORK HEENT Symptoms (Recalled from RN notes): No Resp Symptoms (Recalled from RN notes): No Skin Symptoms (Recalled from RN notes): No MS Symptoms (Recalled from RN notes): No Functional Status (Recalled from RN notes): WNL History of Present Illness Provider Complaint: Patient state that he has been having some sinus congestion and drainage along with cough so he took a home COVID test and it was positive but he has to have an official one so he came here to get checked Related Data Home Medications Medication Instructions Recorded Confirmed glucosamine HCl 500 mg-msm 83 1 each PO DAILY supplement 01/19/18 09/18/22 mg-chondroitin 400 mg tablet lisinopril 10 1 tab PO DAILY BLOOD PRESSURE 01/19/18 09/18/22 mg-hydrochlorothiazide 12.5 mg tablet rosuvastatin 10 mg tablet 10 mg PO HS Cholesterol 01/19/18 09/18/22 aspirin 81 mg tablet,delayed 81 mg PO DAILY Heart disease 01/21/18 09/18/22 release potassium 99 mg tablet 99 mg PO DAILY Supplement 01/21/18 09/18/22 loratadine 10 mg tablet 10 mg PO DAILY 04/09/19 09/18/22 venlafaxine 75 mg capsule,extended 75 mg PO DAILY 04/09/19 09/18/22 release 24 hr celecoxib 200 mg capsule 200 mg PO 12/11/20 09/18/22 Previous Rx's Medication Instructions Recorded [id number]-[id number] 5 ml PO Q4HP PRN Cough 10 days 02/24/21 2 mg-30 mg-10 mg/5 mL oral syrup #180 mL prednisone 20 mg tablet 20 mg PO BID 5 days #10 tabs 02/24/21 Allergies Allergy/AdvReac Type Severity Reac
[2023-03-21 18:59] LABS: Influenza A, PCR Not Detected (NotDetected); Influenza B, PCR Not Detected (NotDetected)
[2023-03-21 19:00] LABS: Coronavirus 19, PCR Detected (NotDetected)
[2023-03-21 19:02] VITALS: BP 126/91; PULSE 83; RESP 14; TEMP 37.3; O2SAT 98
== END 2023-03-21 19:09 | disposition home or self-care (01) ==
PROVIDERS: Emergency Provider Nurse Practitioner; PCP Family Medicine
DX: U07.1 COVID-19 (principal); Z87.891 Personal history of nicotine dependence
CPT/HCPCS: 87636; 99212; 99213; G0463

== ENCOUNTER 2023-09-18 09:00 | Outpatient (RCR) | payer BC, SELFPAY | END 2023-09-18 10:00 | disposition home or self-care (01) | LOC: PT 09:00 | PROVIDERS: PCP Family Medicine; Visit Provider Orthopaedic Surgery | DX: M25.561 Pain in right knee (principal); Z96.651 Presence of right artificial knee joint | CPT/HCPCS: 97010; 97110; 97140; 97163; 97164; 97530 ==

== ENCOUNTER 2024-01-06 09:55 | Outpatient (CLI) | payer BC, SELFPAY ==
--- NOTE | 2024-01-06 10:00 | XR_ITS ---
FINAL REPORT CLINICAL HISTORY: Olecranon bursitis COMPARISON: None FINDINGS: RIGHT ELBOW: 3 images of the right elbow were obtained. There is no evidence of fracture or dislocation. Mild degenerative changes present. There is moderate enthesopathy projecting from the olecranon process. There is no soft tissue abnormality identified. IMPRESSION: Degenerative change as described. No acute bony abnormality. Reviewed, Interpreted and Dictated by Jessica Thorpe MD Transcribed by Elodia Cervantes Authenticated and . [facility]
== END 2024-01-06 23:59 | disposition home or self-care (01) ==
LOC: RAD 09:56
PROVIDERS: PCP Nurse Practitioner Family; Visit Provider Nurse Practitioner Family
DX: M70.21 Olecranon bursitis, right elbow (principal)
CPT/HCPCS: 73080

== ENCOUNTER 2024-02-10 13:02 | Outpatient (CLI) | payer BC, SELFPAY ==
--- NOTE | 2024-02-10 13:05 | XR_ITS ---
FINAL REPORT CLINICAL HISTORY: Rt Elbow Pain COMPARISON: 01/06/2024 FINDINGS: RIGHT ELBOW 3 views were obtained. There is no acute fracture or dislocation. There is a small enthesophyte arising from the olecranon. There is no joint effusion. There is no significant degenerative change. There is no soft tissue abnormality. IMPRESSION: No acute bony abnormality. Reviewed, Interpreted and Dictated by Jessica Thorpe MD Transcribed by Odalis Guerrero Authenticated and . [facility]
== END 2024-02-10 23:59 | disposition home or self-care (01) ==
PROVIDERS: PCP Nurse Practitioner Family; Visit Provider Orthopaedic Surgery
DX: M25.521 Pain in right elbow (principal)
CPT/HCPCS: 73080

== ENCOUNTER 2024-02-17 09:15 | Outpatient (CLI) | payer BC, SELFPAY ==
[2024-02-17 09:53] LABS: Basophils # 0.1 K/mm3 (0-0.2); Basophils % 0.9 % (0.1-2.0); Eosinophils # 0.2 K/mm3 (0.0-0.4); Eosinophils % 3.7 % (0.1-12.0); Hematocrit 43.3 % (42.0-52.0); Hemoglobin 14.4 g/dL (14.1-18.0); Lymphocytes # 1.9 K/mm3 (0.7-4.5); Lymphocytes % 29.5 % (10-50); Mean Corpuscular HGB Conc 33.3 g/dL (31.8-35.4); Mean Corpuscular Hemoglobin 28.9 pg (27.0-31.2); Mean Corpuscular Volume 86.9 fl (80-94); Mean Platelet Volume 7.7 fl (7.4-10.4); Monocytes # 0.5 K/mm3 (0.1-1.0); Monocytes % 7.4 % (1.7-9.3); Neutrophils # 3.8 K/mm3 (1.8-7.8); Neutrophils % 58.6 % (37.0-80.0); Platelet Count 204 K/mm3 (142-424); Red Blood Count 4.98 M/mm3 (4.60-6.20); White Blood Count 6.4 K/mm3 (4.8-10.8)
[2024-02-17 10:30] LABS: Alanine Aminotransferase 23 U/L (12-78); Albumin Level 4.2 g/dl (3.5-5.0); Albumin/Globulin Ratio 1.7 (1.1-1.8); Alkaline Phosphatase 80 U/L (38-126); Aspartate Amino Transferase 34 U/L (17-59); Bilirubin,Total 0.6 mg/dl (0.2-1.3); Blood Urea Nitrogen 24 mg/dl (9-20); Calcium 9.6 mg/dl (8.4-10.2); Carbon Dioxide 26 mmol/L (22.0-30.0); Chloride 105 mmol/L (98-107); Estimated Glomerular Filt Rate 99 ml/min (>60); GFR (African American) 119 ML/MIN (>60); Globulin 2.5 g/dL (1.3-3.2); Glucose 98 mg/dl (74-100); Sodium 138 mmol/L (136-145); Total Protein,Serum 6.7 g/dl (6.3-8.2)
== END 2024-02-17 23:59 | disposition home or self-care (01) ==
LOC: LAB 09:16
PROVIDERS: Physician Assistant Surgical; PCP Nurse Practitioner Family; Visit Provider Orthopaedic Surgery
DX: M70.21 Olecranon bursitis, right elbow (principal)
CPT/HCPCS: 36415; 80053; 85025